=== PATIENT | female | born 1955 ===

== ENCOUNTER 2020-04-29 07:28 | Inpatient (IN) | payer OTHER ==
[~2020-04-29] VITALS: Ht 190.5 cm; Wt 61.7 kg
[~2020-04-29 07:28] MED LIST: FOSAMAX70 MG PO; OSTERA TABLET1 EACH PO; SYNTHROID137 MCG PO
== END 2020-04-30 10:24 | disposition home or self-care (01) | DRG 743 ==
LOC: CIR.AMB 07:28 → OB/GYN 14:05 → O/R 14:05 → OB/GYN 14:14
PROVIDERS: ADMIT Obstetrics & Gynecology Gynecology; ATTEND Obstetrics & Gynecology Gynecology
PROC: 0USG7ZZ Reposition Vagina, Via Natural or Artificial Opening (ICD-10-PCS; 2020-04-29)
PROC: 0UT97ZZ Resection of Uterus, Via Natural or Artificial Opening (ICD-10-PCS; principal; 2020-04-29 11:15)
DX: N81.2 Incomplete uterovaginal prolapse (principal)